=== PATIENT | female | born 1985 | race Caucasian/White ===

== ENCOUNTER 2022-03-12 22:21 | Emergency (ER) | payer OTHER ==
[2022-03-12 22:27] VITALS: BP 123/79; PULSE 93; TEMP 98; BMI 34.9
[2022-03-13 01:28] LABS: BASO % 0.5 % (0-2.0); HEMATOCRIT 32.4 % (32.4-45.2); HEMOGLOBIN 11.1 GM/dL (10.7-15.3); LYMPH % 17.7 % (8-40); MCH 28.9 pg (25.7-33.7); MCHC 34.3 g/dl (32.0-36.0); MEAN CELL VOLUME 84.2 fl (80-96); MEAN PLT VOLUME 8.4 fl (7.5-11.1); MONO % 6.5 % (3.8-10.2); NEUT % 72.3 % (42.8-82.8); PLATELET COUNT 255 10^3/uL (134-434); RBC 3.85 M/mm3 (3.60-5.2); RDW 14.4 % (11.6-15.6); WHITE BLOOD COUNT 9.2 K/mm3 (4.0-10.0)
[2022-03-13 01:45] LABS: CHLORIDE 108 mmol/L (98-107); SODIUM 140 mmol/L (136-145)
[2022-03-13 01:47] LABS: CALCIUM 9.2 mg/dL (8.5-10.1)
[2022-03-13 01:48] LABS: ALBUMIN 3.2 g/dl (3.4-5.0); ANION GAP 9 MMOL/L (8-16); BLOOD UREA NITROGEN 8.2 mg/dL (7-18); CO2 23 mmol/L (21-32); GLUCOSE,RANDOM 90 mg/dL (74-106)
[2022-03-13 01:51] LABS: CREATININE 0.4 mg/dL (0.55-1.3); SGOT/AST 22 U/L (15-37); SGPT/ALT 29 U/L (13-61)
[2022-03-13 01:52] LABS: BILIRUBIN,TOTAL 0.4 mg/dL (0.2-1)
[2022-03-13 01:52] LABS: EPI CELLS 14 /uL (0-25.1); HYALINE CASTS 2 /uL (0-3.1); PH,URINE 5.5 (5.0-8.0); URINE APPEARANCE CLEAR; URINE BACTERIA 794 /uL (0-1359); URINE BILIRUBIN NEGATIVE (NEGATIVE); URINE COLOR YELLOW; URINE GLUCOSE (UA) NEGATIVE (NEGATIVE); URINE KETONE NEGATIVE (NEGATIVE); URINE LEUK ESTERASE NEGATIVE (NEGATIVE); URINE NITRITE NEGATIVE (NEGATIVE); URINE PROTEIN NEGATIVE (NEGATIVE); URINE RBC 13 /uL (0-23.9); URINE UROBILINOGEN 0.2 mg/dL (0.2-1.0); URINE WBC 16 /uL (0-25.8)
[2022-03-13 01:58] LABS: ALK PHOS 65 U/L (45-117); TOT PROT 6.8 g/dl (6.4-8.2)
== END 2022-03-13 03:29 | disposition home or self-care (01) ==
LOC: JER 22:21
DX: O20.8 Other hemorrhage in early pregnancy (principal); Z3A.18 18 weeks gestation of pregnancy
CPT/HCPCS: 36415; 76815-TC; 80053; 81003; 84702; 85025; 86850; 86900; 86901; 99284-25

== ENCOUNTER 2022-08-08 06:15 | Inpatient (IN) | payer OTHER ==
[2022-08-08] MEDS ORDERED: CITRIC ACID/SODIUM CITRATE 30 ML UNIT-DOSE CUP PO ONE ×2 (06:30→08:11)
[2022-08-08] MEDS ORDERED: ELECTROLYTE-148 SOLN 500 ML IV ONE ×2 (06:30→08:11)
[2022-08-08 06:48] VITALS: BMI 35.3
[2022-08-08] MEDS ORDERED: ELECTROLYTE-148 SOLN 1,000 ML IV SCH ×2 (07:00→08:15)
[2022-08-08] MEDS ORDERED: morphine SULFATE/PF 1 MG/2 ML (2cc Syringe - QUVA) EP ONE (07:32)
[2022-08-08] MEDS ORDERED: morphine SULFATE/PF 1 MG/2 ML (2cc Syringe - QUVA) ONE (07:37)
[2022-08-08] MEDS ORDERED: SODIUM CHLORIDE 0.9% P/F 10 ML VIAL IJ ONE (07:38)
[2022-08-08] MEDS ORDERED: ceFAZolin SODIUM 1 GM VIAL ONE (07:38)
[2022-08-08] MEDS ORDERED: PHENYLEPHRINE HCL 10 MG/1 ML SINGLE DOSE VIAL ONE (08:11)
[2022-08-08] MEDS ORDERED: OXYTOCIN 10 UNITS/ML VIAL ONE ×2 (08:31→08:42)
[2022-08-08] MEDS ORDERED: ONDANSETRON 4 MG/2 ML VIAL ONE (09:03)
[2022-08-08] MEDS ORDERED: IBUPROFEN 800 MG/8 ML IJ IVPB PRN (09:30)
[2022-08-08] MEDS ORDERED: SENNOSIDES/DOCUSATE COMBO (SENNA PLUS) TABLET (UD) PO PRN (09:30)
[2022-08-08] MEDS ORDERED: METHYLERGONOVINE MALEATE 0.2 MG/1 ML AMP IM PRN (09:30)
[2022-08-08] MEDS ORDERED: ACETAMINOPHEN 325 MG TABLET (FP) PO PRN (09:30)
[2022-08-08] MEDS: PRENATAL VITAMINS W/ FOLIC ACID TABLET (FP) PO SCH (10:02)
[2022-08-08] MEDS: FERROUS SO4 325 MG TABLET (FP) PO SCH ×2 (10:02→18:13)
[2022-08-08] MEDS ORDERED: OXYTOCIN 20 UNITS in 0.9% NS 20 UNIT/1,000 ML INFUS.BAG IV ONE (10:33)
[2022-08-08] MEDS: OXYTOCIN 20 UNITS in 0.9% NS 20 UNIT/1,000 ML INFUS.BAG IV SCH ×2 (10:34→18:32)
[2022-08-08] MEDS: ONDANSETRON 4 MG/2 ML VIAL IVPUSH PRN ×2 (14:34→20:48)
[2022-08-08] MEDS ORDERED: ONDANSETRON 4 MG/2 ML VIAL IVPUSH ONE (17:16)
[2022-08-08] MEDS ORDERED: oxyCODONE HCL 5 MG TABLET PO PRN ×2 (21:30)
[2022-08-09] MEDS: SIMETHICONE 80 MG TAB.CHEW (FP) PO PRN ×2 (04:37→20:33)
[2022-08-09] MEDS: IBUPROFEN 600 MG TABLET (FP) PO PRN ×2 (04:37→20:33)
[2022-08-09 08:31] LABS: BASO % 0.5 % (0-2.0); EOS % 1.5 % (0-4.5); HEMATOCRIT 23.7 % (32.4-45.2); HEMOGLOBIN 7.6 GM/dL (10.7-15.3); LYMPH % 11.9 % (8-40); MCH 24.2 pg (25.7-33.7); MEAN CELL VOLUME 75.6 fl (80-96); MEAN PLT VOLUME 8.7 fl (7.5-11.1); MONO % 6.4 % (3.8-10.2); NEUT % 79.7 % (42.8-82.8); PLATELET COUNT 184 10^3/uL (134-434); RBC 3.13 M/mm3 (3.60-5.2); RDW 21.6 % (11.6-15.6); WHITE BLOOD COUNT 8.4 K/mm3 (4.0-10.0)
[2022-08-09] MEDS: FERROUS SO4 325 MG TABLET (FP) PO SCH ×2 (09:26→18:40)
[2022-08-09] MEDS: PRENATAL VITAMINS W/ FOLIC ACID TABLET (FP) PO SCH (09:26)
[2022-08-09] MEDS ORDERED: BISACODYL 10 MG SUPP.RECT RC PRN (09:30)
[2022-08-09] MEDS: OXYTOCIN 20 UNITS in 0.9% NS 20 UNIT/1,000 ML INFUS.BAG IV SCH (18:14)
[2022-08-09 23:48] VITALS: RESP 18
[2022-08-10] MEDS: SIMETHICONE 80 MG TAB.CHEW (FP) PO PRN ×3 (07:44→22:23)
[2022-08-10] MEDS: IBUPROFEN 600 MG TABLET (FP) PO PRN ×3 (07:44→22:23)
[2022-08-10] MEDS: FERROUS SO4 325 MG TABLET (FP) PO SCH ×2 (08:59→18:20)
[2022-08-10] MEDS: PRENATAL VITAMINS W/ FOLIC ACID TABLET (FP) PO SCH (09:00)
[2022-08-11 07:20] LABS: BASO % 0.5 % (0-2.0); EOS % 3.8 % (0-4.5); HEMATOCRIT 24.9 % (32.4-45.2); LYMPH % 13.9 % (8-40); MCH 24.8 pg (25.7-33.7); MEAN CELL VOLUME 77.7 fl (80-96); MEAN PLT VOLUME 8.6 fl (7.5-11.1); MONO % 5.7 % (3.8-10.2); NEUT % 76.1 % (42.8-82.8); PLATELET COUNT 208 10^3/uL (134-434); RBC 3.21 M/mm3 (3.60-5.2); RDW 23.9 % (11.6-15.6); WHITE BLOOD COUNT 9.8 K/mm3 (4.0-10.0)
[2022-08-11] MEDS: FERROUS SO4 325 MG TABLET (FP) PO SCH (09:00)
[2022-08-11 09:07] LABS: ANISOCYTOSIS 2+; MACROCYTOSIS 1+
[2022-08-11 09:11] VITALS: BP 125/61; PULSE 80; TEMP 98
[2022-08-11] MEDS: SIMETHICONE 80 MG TAB.CHEW (FP) PO PRN (09:34)
[2022-08-11] MEDS: IBUPROFEN 600 MG TABLET (FP) PO PRN (09:34)
[2022-08-11] MEDS: PRENATAL VITAMINS W/ FOLIC ACID TABLET (FP) PO SCH (09:35)
== END 2022-08-11 17:30 | disposition home or self-care (01) | DRG 788 ==
LOC: JLDR 06:15 → J3W 10:45
PROVIDERS: ADMIT Obstetrics & Gynecology; ATTEND Obstetrics & Gynecology
PROC: 10D00Z1 Extraction of Products of Conception, Low, Open Approach (ICD-10-PCS; principal; 2022-08-08)
DX: O34.219 Maternal care for unspecified type scar from previous cesarean delivery (principal); Z3A.39 39 weeks gestation of pregnancy; Z37.0 Single live birth
CPT/HCPCS: 36415; 85025; 88307-TC